=== PATIENT | female | born 1965 | race Caucasian/White ===

== ENCOUNTER 2017-11-05 12:24 | Emergency (ER) | payer BC, MEDICAID ==
[~2017-11-05] VITALS: Ht 170.2 cm; Wt 81.6 kg
[2017-11-05] MEDS ORDERED: VYVANSE70 MG ORAL (12:54)
--- NOTE | 2017-11-05 12:55 | Emergency Room Report ---
History of Present Illness General Chief Complaint: Medication Refill Source: Patient Present Illness HPI 51 yo female patient presents to ER for refill of medication. Patient reports she lost her insurance in August 2017 and needs refill of Vyvanse. Reports takes it for "wakefulness" because other medications causes drowsiness. Reports was seen by previous primary care provider but had to pay out of pocket and "cannot afford" to do that again. Patient denies fever, chest pain, SOB, rash, abdominal pain. Denies thoughts of hurting herself or someone else. Allergies: Coded Allergies: No Known Allergies (Verified Allergy, Unknown, 09/06/09) Patient History Past Medical History: see triage record Last Menstrual Period: 10/22/17 Now: No Reviewed Nursing Documentation: PMH: Agreed, PSxH: Agreed Nursing Documentation-PMH Hx Cardiac Problems: No Hx Hypertension: No Hx Pacemaker: No Hx Asthma: No Hx COPD: No Hx Diabetes: No Hx Cancer: No Hx Gastrointestinal Problems: Yes - prolapsed colon 2008. 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 Hx Dialysis: No History Of Psychiatric Problem: Yes - chronic depression. Hx Neurological Problems: No Hx Cerebrovascular Accident: No Hx Seizures: No Review of Systems All Other Systems: negative except mentioned in HPI Physical Exam Vital Signs Date Time Temp Pulse Resp B/P (MAP) Pulse Ox O2 Delivery O2 Flow Rate FiO2 11/05/17 12:31 98.4 68 16 106/67 96 Room Air 98.4 Sp02 EP Interpretation: reviewed, normal General Appearance: well appearing, no apparent distress, alert, GCS 15, non- toxic Head: normocephalic, atraumatic Eyes: bilateral eye normal inspection, bilateral eye PERRL ENT: hearing grossly normal, normal pharynx, no angioedema, normal voice, uvula midline, moist mucus membranes Neck: full range of motion Respiratory: lungs clear, normal breath sounds, no rhonchi, no respiratory distress, no accessory muscle use, no wheezing, speaking full sentences Cardiovascular #1: regular rate, rhythm, no edema Musculoskeletal: back normal, digits/nails normal, gait/station normal, normal range of motion, non-tender Neurologic: alert, oriented x3, responsive, motor strength/tone normal, sensory intact Psychiatric: mood/affect normal Skin: no rash Lymphatic: no adenopathy Medical Decision Making PA Attestation Dr. Merlos is my supervising Physician whom patient management has been discussed with. Diagnostic Impression: Primary Impression: Encounter for medication refill ER Course Pt. presents to the ED requesting prescription refill. Multiple differentials were considered. Vital signs: are WNL, pt. is afebrile ORDERS: none required at this time, the diagnosis is clinical Consult with Dr. Merlos, will provide 2 weeks of medication. F/u with primary care provider for further treatment. CURES report shows refill 1 month ago for 30 day supply. No refills since that time. Informed patient will provide 2 week supply. Informed patient ER cannot provide refills again in the future; followup, management and prescription of long-term medications must be performed by primary care provider. Patient reports understanding and agreement. DISCHARGE: Rx provided for Vyvanse for 14 days. At this time pt is stable for d/c to home. Patient is resting comfortably, in no acute distress, nontoxic appearing, talking without difficulty. Patient to take medications as instructed Will provide with patient care instructions and any necessary prescriptions. Care plan and follow-up instructions provided. Patient instructed to follow-up with primary care provider in 3 - 5 days. Patient questions asked and answered. Patient reports understanding and agreement to treatment plan. ER precautions given. Patient instructed to return to ER immediately for any new or worsening of symptoms including but not limited to increasing SOB, persistent fever. Last Vital Signs Date Time Temp Pulse Resp B/P (MAP) Pulse Ox O2 Delivery O2 Flow Rate FiO2 11/05/17 12:31 98.4 68 16 106/67 96 Room Air 98.4 Disposition: HOME, SELF-CARE Condition: Stable Scripts Lisdexamfetamine Dimesylate (VYVANSE) 70 Mg Capsule 70 MG ORAL DAILY, #14 CAP 0 Refills Prov: Bebeto Jauregui 11/05/17 Patient Instructions: Medicine Refill at the Emergency Department Additional Instructions: Followup with primary care provider. Take medications as directed. ER for emergencies only. Will not be able to provide further prescription refills for this medication. F/u with primary care provider for further medication refill. Patient questions asked and answered. ER precautions given, patient instructed to return to ER immediately for any new or worsening of symptoms. Bebeto Jauregui Nov 05, 2017 12:54
[2017-11-05 12:58] VITALS: BP 106/67
== END 2017-11-05 13:00 | disposition home or self-care (01) ==
LOC: EMR 12:55
DX: Z76.0 Encounter for issue of repeat prescription (principal); F32.9 Major depressive disorder, single episode, unspecified
CPT/HCPCS: 99283

== ENCOUNTER 2017-11-20 14:45 | Emergency (ER) | payer MEDICAID ==
[~2017-11-20] VITALS: Ht 170.2 cm; Wt 81.6 kg
[~2017-11-20 14:45] MED LIST: VYVANSE70 MG ORAL
[2017-11-20 15:20] VITALS: BP 118/72
--- NOTE | 2017-11-20 15:29 | Emergency Room Report ---
History of Present Illness General Chief Complaint: Medication Refill Source: Patient (Bebeto Jauregui) Present Illness HPI 52 yo female patient presents to ER requesting medication refill. Patient previously seen in ER for same medication 2 weeks ago. Reports she has 1 pill left and needs more. Patient requesting Vyvanse. Reports has appointment with physician on December 09, needs medication until that time. Denies acute symptoms currently. Denies fever, chest pain, SOB. (Bebeto Jauregui) Allergies: Coded Allergies: No Known Allergies (Verified Allergy, Unknown, 09/06/09) Patient History Past Medical History: see triage record Now: No Reviewed Nursing Documentation: PMH: Agreed; PSxH: Agreed (Bebeto Jauregui) Nursing Documentation-PMH Past Medical History: No History, Except For Hx Cardiac Problems: No Hx Hypertension: No Hx Pacemaker: No Hx Asthma: No Hx COPD: No Hx Diabetes: No Hx Cancer: No Hx Gastrointestinal Problems: Yes - prolapsed colon 2007. 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 Hx Dialysis: No History Of Psychiatric Problem: Yes - anxiety, depression Hx Neurological Problems: No Hx Cerebrovascular Accident: No Hx Seizures: No (Bebeto Jauregui) Review of Systems All Other Systems: negative except mentioned in HPI (Bebeto Jauregui) Physical Exam Vital Signs Date Time Temp Pulse Resp B/P (MAP) Pulse Ox O2 Delivery O2 Flow Rate FiO2 11/20/17 14:49 98.0 70 17 118/72 98 Room Air 98.1 Sp02 EP Interpretation: reviewed, normal General Appearance: well appearing, no apparent distress, alert, GCS 15, non- toxic Head: normocephalic, atraumatic Eyes: bilateral eye normal inspection, bilateral eye PERRL ENT: hearing grossly normal, normal pharynx, no angioedema, normal voice, uvula midline, moist mucus membranes Neck: full range of motion Respiratory: no respiratory distress, no accessory muscle use, speaking full sentences Musculoskeletal: back normal, digits/nails normal, gait/station normal, normal range of motion, non-tender Neurologic: alert, oriented x3, responsive, motor strength/tone normal, sensory intact Psychiatric: mood/affect normal Skin: no rash (Bebeto Jauregui) Medical Decision Making PA Attestation Dr. Harmon is my supervising Physician whom patient management has been discussed with. (Bebeto Jauregui) Diagnostic Impression: Primary Impression: Encounter for medication refill ER Course Pt. presents to the ED requesting prescription refill. Multiple differentials were considered. Vital signs: are WNL, pt. is afebrile ORDERS: PE benign. Informed patient would not provide refill of medication. Consult with Dr. Harmon. Dr. Harmon saw and spoke with patient. Will not provide refill of medication. Contact primary care provider by phone to discuss medication for further treatment prior to scheduled appointment. F/u at scheduled appointment. Informed patient ER cannot provide refills in the future; followup, management and prescription of long-term medications must be performed by primary care provider. DISCHARGE: No Rx provided at this time. At this time pt is stable for d/c to home. Patient is resting comfortably, in no acute distress, nontoxic appearing, talking without difficulty. Patient to take medications as instructed Will provide with patient care instructions and any necessary prescriptions. Care plan and follow-up instructions provided. Patient instructed to follow-up with primary care provider in 3 - 5 days. Patient questions asked and answered. Patient reports understanding and agreement to treatment plan. ER precautions given. Patient instructed to return to ER immediately for any new or worsening of symptoms including but not limited to increasing SOB, persistent fever. (Bebeto Jauregui) ER Course I discussed reluctance to re-fill amphetamine in ED. Patient understands and will find prior MD who filled meds in past. No SI or HI. (Yunior Harmon M.D.) Last Vital Signs Date Time Temp Pulse Resp B/P (MAP) Pulse Ox O2 Delivery O2 Flow Rate FiO2 11/20/17 15:20 98.1 75 17 118/72 98 Room Air 98.1 (Bebeto Jauregui) Disposition: HOME, SELF-CARE Condition: Stable Patient Instructions: Medicine Refill at the Emergency Department Additional Instructions: Followup with primary care provider. Contact primary care provider for medication refill. Unable to refill medications in ER. Take medications as directed. Patient questions asked and answered. ER precautions given, patient instructed to return to ER immediately for any new or worsening of symptoms. Bebeto Jauregui Nov 20, 2017 15:29 Yunior Harmon M.D. Nov 21, 2017 04:28
[2017-11-20 16:09] VITALS: BP 118/72
== END 2017-11-20 16:17 | disposition home or self-care (01) ==
LOC: EMR 15:25
DX: Z76.0 Encounter for issue of repeat prescription (principal); F41.9 Anxiety disorder, unspecified; F32.9 Major depressive disorder, single episode, unspecified
CPT/HCPCS: 99281